=== PATIENT | male | born 1965 | race Caucasian/White ===

== ENCOUNTER 2020-07-23 08:04 | Day surgery (SDC) | payer BC ==
[2020-07-21 15:33] LABS: CORONAVIRUS COVID-19 NAA NEGATIVE (NEGATIVE)
[~2020-07-23 08:04] MED LIST: Sodium Chloride 0.9% 10 ML Syringe FLUSH PRN
[2020-07-23] MEDS ORDERED: fentaNYL 100 MCG/2 ML SDV ONE ×3 (08:19→09:07)
[2020-07-23] MEDS ORDERED: Propofol 200 MG/20 ML SDV ONE ×2 (08:20→09:07)
[2020-07-23] MEDS ORDERED: Midazolam 1 MG/ML 2 ML SDV ONE ×2 (08:20→09:07)
[2020-07-23] MEDS: Lactated Ringers 1,000 ML IV SCH (08:32)
--- NOTE | 2020-07-23 09:05 | PCM.PN ---
- General Info Date of Service: 07/23/20 - Review of Systems Systems Review Comment:: 54-year-old male with umbilical hernia here for repair. He is medically stable to proceed today. There has been no significant change in his health status since his recent history and physical. I have discussed the proposed umbilical hernia repair with the patient. We reviewed expectations and risks. We also discussed likely use of mesh. He agrees to proceed. The site is confirmed with the patient and marked. - Patient Data Vitals - Most Recent: Last Vital Signs Temp 97.0 F 07/23/20 08:40 Pulse 70 07/23/20 08:40 Resp 18 07/23/20 08:40 BP 152/92 H 07/23/20 08:40 Pulse Ox 98 07/23/20 08:40 Weight - Most Recent: 145.15 kg Med Orders - Current: Current Medications Lactated Ringer's (Ringers, Lactated) 1,000 mls @ 125 mls/hr IV ASDIRECTED LONNIE Last Admin: 07/23/20 08:32 Dose: 125 mls/hr Documented by: Sodium Chloride (Saline Flush) 10 ml FLUSH ASDIRECTED PRN PRN Reason: Keep Vein Open Discontinued Medications Fentanyl (Sublimaze) Confirm Administered Dose 100 mcg .ROUTE .STK-MED ONE Stop: 07/23/20 08:20 Fentanyl (Sublimaze) Confirm Administered Dose 100 mcg .ROUTE .STK-MED ONE Stop: 07/23/20 08:58 Midazolam HCl (Versed 1 Mg/Ml) Confirm Administered Dose 2 mg .ROUTE .STK-MED ONE Stop: 07/23/20 08:21 Propofol (Diprivan 20 Ml) Confirm Administered Dose 600 mg .ROUTE .STK-MED ONE Stop: 07/23/20 08:21 Sepsis Event Note - Focused Exam Vital Signs: Vital Signs Temp Pulse Resp BP Pulse Ox 07/23/20 08:40 97.0 F 70 18 152/92 H 98 - Problem List Review Problem List Initiated/Reviewed/Updated: Yes - My Orders Last 24 Hours: My Active Orders 07/23/20 08:00 Patient Status [ADT] Routine Peripheral IV Care [RC] . DIRECTED Verify Patient Consent Obtain [RC] ASDIRECTED Lactated Ringers [Ringers, Lactated] 1,000 ml IV ASDIRECTED Sodium Chloride 0.9% [Saline Flush] 10 ml FLUSH ASDIRECTED PRN Peripheral IV Insertion Adult [OM.PC] Routine - Assessment Assessment:: Umbilical hernia - Plan Plan:: Umbilical hernia repair
[2020-07-23] MEDS ORDERED: ceFAZolin 1 GM Vial ONE (09:07)
[2020-07-23] MEDS ORDERED: Neostigmine Methylsulfate 10 MG/10 ML MDV ONE (09:07)
[2020-07-23] MEDS ORDERED: Rocuronium 100 MG/10 ML MDV ONE (09:07)
[2020-07-23] MEDS ORDERED: Ondansetron 4 MG/2 ML SDV ONE (09:07)
[2020-07-23] MEDS ORDERED: Succinylcholine 200 MG/10 ML MDV ONE (09:07)
[2020-07-23] MEDS ORDERED: Ketorolac 30 MG/ML SDV ONE (09:07)
[2020-07-23] MEDS ORDERED: Dexamethasone 10 MG/ML SDV ONE (09:07)
[2020-07-23] MEDS ORDERED: Glycopyrrolate 0.2 MG/ML SDV ONE (09:07)
[2020-07-23] MEDS: Bupivacaine 0.25% 10 ML SDV INJECT ONE (09:34)
[2020-07-23] MEDS: ceFAZolin 1 GM Vial ONE (09:55)
[2020-07-23] MEDS: Bacitracin Oint 1 GM U/D Packet TOP ONE (11:25)
--- NOTE | 2020-07-23 11:47 | PCM.OPNOTE ---
- General Post-Op/Procedure Note Date of Surgery/Procedure: 07/23/20 Operative Procedure(s): Repair incarcerated umbilical hernia with mesh Findings: Large umbilical hernia with omentum contained within the sac and adhesed to it. No vascular compromise. Pre Op Diagnosis: umbilical hernia Post-Op Diagnosis: incarcerated umbilical hernia Anesthesia Technique: General ET Tube Primary Surgeon: Amari Leal Pathology: Umbilical hernia sac EBL in mLs: 30 Complications: None Condition: Good
--- NOTE | 2020-07-23 13:05 | OR ---
Date of Procedure: 07/23/2020 PREOPERATIVE DIAGNOSIS: Umbilical hernia. POSTOPERATIVE DIAGNOSIS: Incarcerated umbilical hernia. OPERATION PERFORMED: Repair of umbilical hernia with mesh. INDICATIONS FOR SURGERY: This 54-year-old male has developed a large hernia at the level of his umbilicus. This is becoming more symptomatic for him and he comes for an elective repair. FINDINGS: The patient has a [id number]-sized hernia at the level of the umbilicus. The fascial defect is approximately 6 cm in length. The surrounding fascia appears solid and of good quality. There is a large amount of omentum in the hernia sac with adhesions of the omentum to the sac causing it to be incarcerated, although there was no vascular compromise. There was no bowel involvement with the hernia sac. DESCRIPTION OF PROCEDURE: The patient was taken to the operating room. He was given general endotracheal anesthesia and the abdomen was sterilely prepped and draped. An infraumbilical curvilinear incision was made. Dissection proceeded down onto the hernia sac which was carefully isolated from the surrounding subcutaneous tissue. The overlying skin of the umbilicus was sharply dissected off the sac carefully preserving the skin uninjured. Once the sac had been completely freed circumferentially down to the level of the fascia, the fatty tissue surrounding the fascial opening was cleared to assure that there was no other defects in the area. The hernia sac was opened and omentum was identified within the sac. The adhesions of the omentum to the hernia sac were carefully taken down with cautery dissection until it was completely freed and then the omentum was able to be reduced intra-abdominally. The hernia sac was then excised with cautery at the level of the fascia. The hernia sac was quite thick, especially inferiorly, and this thick area was left intact with the sac attachments to it were divided above clamps and ligated with 0 Vicryl ties. This thick preperitoneal fatty tissue was then reduced as well and the fascial edges were trimmed to provide a good approximating surface. Surrounding subcutaneous fatty tissue was cleared off the anterior surface of the fascia, and then, a flat piece of polypropylene mesh was soaked in Ancef. The fascial defect was then closed with interrupted #1 Prolene sutures in a Smead-Bernard suturing technique. Incorporated in these repair sutures was a flat piece of polypropylene mesh on the anterior surface of the fascia. In this manner, the entire fascial defect was closed with reinforcing mesh in its anterior surface. This created a secure reinforced closure of the peritoneal fascial defect. The peripheral edges of the mesh were trimmed and these were tacked down to the underlying fascia with a running 0 Vicryl suture. No sign of any complications noted on this what appeared to be very solid repair. The wound was irrigated with Ancef in saline solution. The skin of the umbilicus was tacked down to the underlying fascia with 3-0 Vicryl and the subcutaneous tissue was reapproximated also with interrupted 3-0 Vicryl. It was also tacked down to the underlying fascia to try to limit any space. The skin was closed with a running 4-0 Vicryl subcuticular stitch. Benzoin and Steri-Strips were applied followed by antibiotic ointment and sterile dressings. The patient was then awakened, extubated, and taken from the operating room in satisfactory condition. ESTIMATED BLOOD LOSS: 30 mL. COMPLICATIONS: None. PROGNOSIS: Good. ERIKA Leal MD /[id number] MTDDrew
[2020-07-23 13:10] VITALS: BP 162/89
[2020-07-23 13:11] VITALS: PULSE 81
== END 2020-07-23 14:15 | disposition home or self-care (01) ==
LOC: LL.SDS 08:04
PROVIDERS: ATTEND Surgery
DX: K42.0 Umbilical hernia with obstruction, without gangrene (principal); I10 Essential (primary) hypertension; E78.5 Hyperlipidemia, unspecified; E66.9 Obesity, unspecified; Z68.42 Body mass index [BMI] 45.0-49.9, adult; Z01.812 Encounter for preprocedural laboratory examination; Z20.822 Contact with and (suspected) exposure to COVID-19
CPT/HCPCS: 00750; C1781; J0330; J0690; J1100; J1885; J2250; J2405; J2704; J2710; J3010; J3490; J7120; U0002

== ENCOUNTER 2020-08-28 14:25 | Emergency (ER) | payer BC, OTHER ==
--- NOTE | 2020-08-28 14:44 | EDM.PDOC ---
ED HPI GENERAL MEDICAL PROBLEM - General Chief Complaint: Laceration Stated Complaint: Laceration Time Seen by Provider: 08/28/20 14:35 Source of Information: Reports: Patient, Old Records ([facility] chart/EMR) History Limitations: Reports: No Limitations - History of Present Illness INITIAL COMMENTS - FREE TEXT/NARRATIVE: The patient drove himself to the emergency room via private automobile for evaluation of a Workmen's Compensation injury, which occurred at about 2 PM this afternoon. 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 He is right-handed and has not injured this hand in the past. The patient did rinse out the wound with some tap water with no other treatment or medications prior to arrival. The patient denies any chest pain/pressure, heart flutter, dizziness, orthostasis, orthopnea, diaphoresis, paresthesias, recent decreased exercise tolerance, or any other anginal-type symptoms. No recent history of abdominal pain, heartburn, nausea, diarrhea, melena, gross hematochezia, or any food intolerance, including fatty foods, etc.. The patient also denies any recent fever, cough, wheezing, dyspnea, etc.. He denies any significant pain or discomfort. Onset: Today, Sudden Onset Date: 08/28/20 Onset Time: 14:00 Duration: Constant Location: Reports: Upper Extremity, Right, Other (No significant pain). Denies: Head, Face, Neck, Chest, Abdomen, Back, Pelvis, Upper Extremity, Left, Lower Extremity, Left, Radiates to Quality: Reports: Same as Previous Episode (Was) Improves with: Reports: None Worsens with: Reports: None Context: Reports: Trauma (As above) Associated Symptoms: Denies: Confusion, Chest Pain, Cough, Diaphoresis, Fever/Chills, Headaches, Malaise, Nausea/Vomiting, Rash, Shortness of Breath, Syncope, Weakness Treatments [employer]ER: Reports: Other (see below) (As above) - Related Data Allergies Allergy/AdvReac Type Severity Reaction Status Date / Time No Known Allergies Allergy Verified 07/23/20 05:34 Home Meds: Home Meds Acetaminophen [Tylenol Extra Strength] 500 mg PO Q6H PRN MDD 4000 07/23/20 [Hist ory] Ranitidine [Zantac] 75 mg PO DAILY PRN 07/23/20 [History] Past Medical History HEENT History: Reports: None Cardiovascular History: Reports: Hypertension Respiratory History: Reports: None Gastrointestinal History: Reports: GERD Endocrine/Metabolic History: Reports: Obesity/BMI 30+ - Past Surgical History GI Surgical History: Reports: Hernia, Abdominal, Other (See Below) Other GI Surgeries/Procedures: Repair of incarcerated umbilical hernia on 07/23/2019. Musculoskeletal Surgical History: Reports: Hip Replacement ED ROS GENERAL - Review of Systems Review Of Systems: Comprehensive ROS is negative, except as noted in HPI. ED EXAM, SKIN/RASH Exam: See Below Exam Limited By: No Limitations General Appearance: Alert, WD/WN, No Apparent Distress Head: Atraumatic, Normocephalic. No: Facial Swelling, Facial Tenderness, Sinus Tenderness Neck: Normal Inspection, Supple, Non-Tender, Full Range of Motion. No: Lymphadenopathy (L), Lymphadenopathy (R) Respiratory/Chest: No Respiratory Distress, Lungs Clear, Normal Breath Sounds, No Accessory Muscle Use, Chest Non-Tender. No: Pleural Rub, Retractions Cardiovascular: Normal Peripheral Pulses, Regular Rate, Rhythm, No Edema, No Gallop, No JVD, No Murmur, No Rub. No: Gallop/S3, Gallop/S4, Friction Rub Peripheral Pulses: 2+: Radial (L), Radial (R) GI/Abdominal: Normal Bowel Sounds, Soft, Non-Tender, No Organomegaly, No Distention, No Abnormal Bruit, No Mass, Other (Obese). No: Guarding (Male) Exam: Deferred Rectal (Males) Exam: Deferred Back Exam: Normal Inspection, Full Range of Motion. No: CVA Tenderness (L), CVA Tenderness (R), Muscle Spasm Extremities: Normal Range of Motion, No Pedal Edema, Normal Capillary Refill, Other (4 cm in length laceration over the dorsal surface of the right hand with no evidence of foreign body, nerve/tendon involvement, or significant bleeding). No: Non-Tender (Minimal tenderness at laceration site), Gerhard's Sign, Increased Warmth Neurological: Alert, Oriented, CN II-XII Intact, Normal Cognition, Normal Gait, No Motor/Sensory Deficits Psychiatric: Normal Affect, Normal Mood Skin: Wound/Incision (As above). No: Diaphoretic Location, Skin: Upper Extremity, Right Characteristics: Other (As above) Associated features: Tenderness (As above). No: Warmth, Lymphangitis, Inflammation Lymphatic: No Adenopathy ED SKIN PROCEDURES - Laceration/Wound Repair Right Dorsal Hand Appearance: Subcutaneous, Mildly Contaminated Distal NVT: Neuro & Vascular Intact, No Tendon Injury Anesthetic Type: Local Local Anesthesia - Lidocaine (Xylocaine): 1% Plain Local Anesthetic Volume: Other (6 cc) Skin Prep: Providone-Iodine (Betadine) (Initial povidone iodine soak with subsequent thorough wash with similar solution by this provider) Saline Irrigation (cc's): 0 Exploration/Debridement/Repair: Wound Explored, In a Bloodless Field, Explored to Base, No Foreign Material Found, Multiple Flaps Aligned Closed with: Sutures Lac/Wound length In cm: 4.0 Suture Size: 4-0 # of Sutures: 7 Suture Type: Nylon, Interrupted, Simple Drain Placement: No Sterile Dressing Applied: Nurse Tetanus Status Addressed: Yes Complications: No Course - Vital Signs Last Recorded V/S: Last Vital Signs Temp 35.7 C L 08/28/20 14:30 Pulse 93 08/28/20 14:30 Resp 16 08/28/20 14:30 BP 144/80 H 08/28/20 14:30 Pulse Ox 96 08/28/20 14:30 - Orders/Labs/Meds Labs: None Meds: Medications Discontinued Medications Generic Name Dose Route Start Last Admin Trade Name Freq PRN Reason Stop Dose Admin Diphtheria/Tetanus/Acell Pertussis 0.5 ml 08/28/20 14:45 08/28/20 15:13 Diphtheria,Pertussis(Acell),Tetanus Vaccine 0.5 Ml Syringe IM 08/28/20 14:46 0.5 ml .ONCE ONE Administration Lidocaine HCl 5 ml 08/28/20 14:44 08/28/20 14:53 Lidocaine 1% 5 Ml Sdv INJECT 08/28/20 14:45 5 ml ONETIME ONE Administration Lidocaine HCl 5 ml 08/28/20 14:45 08/28/20 14:53 Lidocaine 1% 5 Ml Sdv INJECT 08/28/20 14:46 5 ml ONETIME ONE Administration Neomycin/Polymyxin/Bacitracin 1 each 08/28/20 14:45 08/28/20 14:57 Bacitracin/Neomycin/Polymyxin B Oint 0.9 Gm U/D Packet TOP 08/28/20 14:46 1 each ONETIME ONE Administration - Radiology Interpretation Free Text/Narrative:: None Departure - Departure Time of Disposition: 15:35 Disposition: Home, Self-Care 01 Condition: Good Clinical Impression: Laceration, Obesity (BMI 30-39.9), Elevated blood pressure reading Osteoarthritis Qualifiers: Osteoarthritis location: multiple joints Osteoarthritis type: primary Qualified Code(s): M89.49 - Other hypertrophic osteoarthropathy, multiple sites GERD (gastroesophageal reflux disease) Qualifiers: Esophagitis presence: without esophagitis Qualified Code(s): K21.9 - Gastro- esophageal reflux disease without esophagitis - Discharge Information *PRESCRIPTION DRUG MONITORING PROGRAM REVIEWED*: Not Applicable *COPY OF PRESCRIPTION DRUG MONITORING REPORT IN PATIENT NIDIA: Not Applicable Instructions: Laceration Care, Adult, [id number], Sutures, Rohit, or Adhesive Wound Closure, [id number] Referrals: Luis Miguel Jackson PA [Primary Care Provider] - Forms: ED Department Discharge, ED Return to Work/School Form Additional Instructions: 1. Follow up with your regular provider in 10-14 days for suture removal as directed. Bring these discharge instructions with you to that visit. 2. Antibacterial soap wash/soak with subsequent antibacterial dressing such as Neosporin, etc. as directed 2 times per day until the wound or laceration site completely heals. Keep the area clean and dry with activity restrictions as discussed. Never use hydrogen peroxide for wound care. 3. Work excuse- See Form 4. Immediately after this visit verify that your cellular telephone's voicemail has been activated and is empty. Also verify that your home telephone's answering machine is operating properly and has space to receive messages. Note that it is sometimes necessary for us to be able to contact you at a later date to discuss your medical care. 5. Please remember that we are ALWAYS here for you and want to answer any questions you may have. Feel free to call the hospital any time and we call you back MALICK. 6. Continue to observe your blood pressure and pulses closely through your [facility] provider, including at time of the above follow-up visit. - Problem List & Annotations (1) Laceration SNOMED Code(s): 120500225 Code(s): KCY6345 - Status: Acute Priority: High Onset Date: 08/28/20 Annotation/Comment:: Excellent results with laceration repair as above. Workmen's Compensation and work excuse forms were completed. DTaP was given. Activity restrictions, wound care, etc. were extensively discussed. (2) Elevated blood pressure reading SNOMED Code(s): 35280284 Code(s): R03.0 - ELEVATED BLOOD-PRESSURE READING, W/O DIAGNOSIS OF HTN Status: Acute Priority: Medium Annotation/Comment:: Mildly elevated blood pressure in the emergency room. Previous history of borderline hypertension with no previous medical therapy. Continue to observe closely by his regular provider. (3) Obesity (BMI 30-39.9) SNOMED Code(s): 031707035, 239886681 Code(s): E66.9 - OBESITY, UNSPECIFIED Status: Chronic Priority: Medium Annotation/Comment:: Weight loss in moderation advisable. Note borderline hypertension by history as above. (4) Osteoarthritis SNOMED Code(s): 560340086 Code(s): M19.90 - UNSPECIFIED OSTEOARTHRITIS, UNSPECIFIED SITE Status: Chronic Priority: Medium Annotation/Comment:: Otherwise stable by history with no evidence of other injury. Qualifiers: Osteoarthritis location: multiple joints Osteoarthritis type: primary Qualified Code(s): M89.49 - Other hypertrophic osteoarthropathy, multiple sites (5) GERD (gastroesophageal reflux disease) SNOMED Code(s): 645624133 Code(s): K21.9 - GASTRO-ESOPHAGEAL REFLUX DISEASE WITHOUT ESOPHAGITIS Status: Chronic Priority: Medium Annotation/Comment:: Stable by history with current medical therapy. Qualifiers: Esophagitis presence: without esophagitis Qualified Code(s): K21.9 - Gastro-esophageal reflux disease without esophagitis - Problem List Review Problem List Initiated/Reviewed/Updated: Yes - Assessment/Plan Assessment:: As above Plan: As above. Extensive precautions were given to the patient, who is in agreement with the treatment plan. See Patient Instructions for further treatment and plan.
[2020-08-28] MEDS ORDERED: Diphtheria,Pertussis(Acell),Tetanus Vaccine 0.5 ML Syringe IM ONE (14:45)
[2020-08-28] MEDS ORDERED: Bacitracin/Neomycin/Polymyxin B Oint 0.9 GM U/D Packet TOP ONE (14:45)
== END 2020-08-28 15:35 | disposition home or self-care (01) ==
LOC: LL.ED 14:25
DX: S61.411A Laceration without foreign body of right hand, initial encounter (principal); R03.0 Elevated blood-pressure reading, without diagnosis of hypertension; M89.49 Other hypertrophic osteoarthropathy, multiple sites; K21.9 Gastro-esophageal reflux disease without esophagitis; E66.9 Obesity, unspecified; I10 Essential (primary) hypertension; Z79.899 Other long term (current) drug therapy; Z23 Encounter for immunization; W26.8XXA Contact with other sharp object(s), not elsewhere classified, initial encounter
CPT/HCPCS: 12002; 90471; 90715; 99282-25; 99283

== ENCOUNTER 2020-11-01 08:43 | Observation (INO) | payer BC ==
[2020-11-01] MEDS ORDERED: Sodium Chloride 0.9% 1,000 ML IV ONE (08:49)
[2020-11-01] MEDS ORDERED: Ketorolac 30 MG/ML SDV IVPUSH ONE (08:52)
[2020-11-01] MEDS: Sodium Chloride 0.9% 10 ML Syringe FLUSH PRN ×2 (09:10→11:38)
[2020-11-01 09:30] LABS: CHLORIDE,CL 102 mmol/L (98-107); SODIUM,NA 137 mmol/L (136-145)
[2020-11-01] MEDS ORDERED: Tamsulosin 0.4 MG Cap.ER PO ONE (09:42)
--- NOTE | 2020-11-01 09:54 | EDM.PDOC ---
ED HPI GENERAL MEDICAL PROBLEM - General Chief Complaint: Flank Pain Stated Complaint: Flank Pain Time Seen by Provider: 11/01/20 09:00 Source of Information: Reports: Patient History Limitations: Reports: No Limitations - History of Present Illness INITIAL COMMENTS - FREE TEXT/NARRATIVE: Diagnosed with 4.5mm kidney stone near right distal ureter 10/28. Comes to ER with increased pain complaint. Received Flomax from primary provider at time of diagnosis. Using Ibuprofen for pain. 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 - Related Data Allergies Allergy/AdvReac Type Severity Reaction Status Date / Time No Known Allergies Allergy Verified 07/23/20 05:34 Home Meds: Home Meds Acetaminophen [Tylenol Extra Strength] 500 mg PO Q6H PRN MDD 4000 07/23/20 [History] Ranitidine [Zantac] 75 mg PO DAILY PRN 07/23/20 [History] Tamsulosin HCl [Flomax] 0.4 mg PO BEDTIME 11/01/20 [History] Past Medical History HEENT History: Reports: None Cardiovascular History: Reports: Hypertension Respiratory History: Reports: None Gastrointestinal History: Reports: GERD, Other (See Below) (fatty enlarged liver) Genitourinary History: Reports: Renal Calculus Endocrine/Metabolic History: Reports: Obesity/BMI 30+ - Past Surgical History GI Surgical History: Reports: Hernia, Abdominal, Other (See Below) Other GI Surgeries/Procedures: Repair of incarcerated umbilical hernia on 07/23/2019. ED ROS GENERAL - Review of Systems Review Of Systems: See Below Constitutional: Reports: No Symptoms HEENT: Reports: No Symptoms Respiratory: Reports: No Symptoms Cardiovascular: Reports: No Symptoms GI/Abdominal: Denies: Constipation, Diarrhea, Nausea, Vomiting : Reports: Flank Pain. Denies: Hematuria, Urinary Retention Musculoskeletal: Reports: No Symptoms Skin: Reports: No Symptoms Neurological: Reports: No Symptoms Psychiatric: Reports: No Symptoms ED EXAM, GENERAL - Physical Exam Exam: See Below Exam Limited By: No Limitations General Appearance: Alert, Moderate Distress, Obese Eye Exam: Bilateral Eye: EOMI, PERRL Ears: Hearing Grossly Normal Nose: No: Nasal Deformity, Nasal Swelling, Nasal Drainage Throat/Mouth: Normal Lips, Normal Voice, No Airway Compromise Head: Atraumatic, Normocephalic Neck: Supple Respiratory/Chest: No Respiratory Distress, Lungs Clear, Normal Breath Sounds, No Accessory Muscle Use, Chest Non-Tender Cardiovascular: Normal Peripheral Pulses, Regular Rate, Rhythm, No Murmur GI/Abdominal: Soft, Non-Tender (Male) Exam: Deferred Rectal (Males) Exam: Deferred Back Exam: No: CVA Tenderness (L), CVA Tenderness (R), Muscle Spasm Extremities: Normal Capillary Refill Neurological: Alert, Oriented, Normal Gait, No Motor/Sensory Deficits Psychiatric: Normal Affect, Normal Mood Skin Exam: Warm, Dry, Intact, Normal Color Course - Vital Signs Last Recorded V/S: Last Vital Signs Temp 36.5 C 11/01/20 08:45 Pulse 72 11/01/20 08:45 Resp 16 11/01/20 08:45 BP 158/99 H 11/01/20 08:45 Pulse Ox 98 11/01/20 08:45 - Orders/Labs/Meds Orders: Active Orders 24 hr Category Date Time Status Peripheral IV Care [RC] . DIRECTED Care 11/01/20 08:49 Active UA RFX HONORIO AND CULT IF INDIC [URIN] Stat Lab 11/01/20 08:48 Ordered Sodium Chloride 0.9% [Normal Saline] 1,000 ml Med 11/01/20 08:49 Active IV .BOLUS Sodium Chloride 0.9% [Saline Flush] Med 11/01/20 08:49 Active 10 ml FLUSH ASDIRECTED PRN Tamsulosin [Flomax] Med 11/01/20 09:42 Once 0.4 mg PO ONETIME ONE Peripheral IV Insertion Adult [OM.PC] Routine Oth 11/01/20 08:49 Ordered Medication Orders Sodium Chloride (Normal Saline) 1,000 mls @ 999 mls/hr IV .BOLUS ONE Stop: 11/01/20 09:49 Last Admin: 11/01/20 09:07 Dose: 999 mls/hr Documented by: DANAY Sodium Chloride (Sodium Chloride 0.9% 10 Ml Syringe) 10 ml FLUSH ASDIRECTED PRN PRN Reason: Keep Vein Open Last Admin: 11/01/20 09:10 Dose: 10 ml Documented by: DANAY Tamsulosin HCl (Tamsulosin 0.4 Mg Cap.Er) 0.4 mg PO ONETIME ONE Stop: 11/01/20 09:43 Labs: Laboratory Tests 11/01/20 11/01/20 Range/Units 09:02 09:02 WBC 9.0 (4.0-10.2) K/uL RBC 5.99 H (4.33-5.41) M/uL Hgb 15.1 (13.1-16.8) g/dL Hct 45.3 (39.0-49.0) % MCV 75.6 L (84.0-98.0) fL MCH 25.2 L (28.2-33.3) pg MCHC 33.3 (31.7-36.0) g/dL RDW 13.7 (11.2-14.1) % Plt Count 229 (150-350) K/uL Neut % (Auto) 75.4 (45.0-80.0) % Lymph % (Auto) 16.9 (10.0-50.0) % [place] % (Auto) 6.9 (2.0-14.0) % Eos % (Auto) 0.4 (0.0-5.0) % Baso % (Auto) 0.4 (0.0-2.0) % Neut # (Auto) 6.76 (1.40-7.00) K/uL Lymph # (Auto) 1.52 (0.50-3.50) K/uL [place] # (Auto) 0.62 (0.00-1.00) K/uL Eos # (Auto) 0.04 (0.00-0.50) K/uL Baso # (Auto) 0.04 (0.00-0.20) K/uL Sodium 137 (136-145) mmol/L Potassium 4.5 (3.5-5.1) mmol/L Chloride 102 (98-107) mmol/L Carbon Dioxide 23.0 (21.0-32.0) mmol/L BUN 20 H (7-18) mg/dL Creatinine 0.78 (0.51-1.17) mg/dL Est Cr Clr Drug Dosing TNP Estimated GFR (MDRD) > 60 mL/min Glucose 164 H (70-99) mg/dL Calcium 9.1 (8.5-10.1) mg/dL Magnesium 2.0 (1.8-2.4) mg/dL Total Bilirubin 0.2 (0.2-1.0) mg/dL AST 19 (15-37) U/L ALT 32 (12-78) U/L Alkaline Phosphatase 109 (46-116) IU/L Total Protein 7.5 (6.4-8.2) g/dL Albumin 3.7 (3.4-5.0) g/dL Meds: Medications Generic Name Dose Route Start Last Admin Trade Name Freq PRN Reason Stop Dose Admin Sodium Chloride 1,000 mls @ 999 mls/hr 11/01/20 08:49 11/01/20 09:07 Normal Saline IV 11/01/20 09:49 999 mls/hr .BOLUS ONE Administration Sodium Chloride 10 ml 11/01/20 08:49 11/01/20 09:10 Sodium Chloride 0.9% 10 Ml Syringe FLUSH 10 ml ASDIRECTED PRN Administration Keep Vein Open Tamsulosin HCl 0.4 mg 11/01/20 09:42 Tamsulosin 0.4 Mg Cap.Er PO 11/01/20 09:43 ONETIME ONE Discontinued Medications Generic Name Dose Route Start Last Admin Trade Name Freq PRN Reason Stop Dose Admin Ketorolac Tromethamine 30 mg 11/01/20 08:52 11/01/20 09:07 Ketorolac 30 Mg/Ml Sdv IVPUSH 11/01/20 08:53 30 mg ONETIME ONE Administration - Re-Assessments/Exams Free Text/Narrative Re-Assessment/Exam: 11/01/20 11:12 Patient much more comfortable after Toradol. Received Flomax tab. NS bolus. Departure - Departure Time of Disposition: 10:30 Disposition: Refer to Observation Condition: Good Clinical Impression: Ureteric colic - Discharge Information *PRESCRIPTION DRUG MONITORING PROGRAM REVIEWED*: Not Applicable *COPY OF PRESCRIPTION DRUG MONITORING REPORT IN PATIENT NIDIA: Not Applicable Referrals: Luis Miguel Jackson PA [Primary Care Provider] - Sepsis Event Note (ED) - Evaluation Sepsis Screening Result: No Definite Risk - Focused Exam Vital Signs: Vital Signs Temp Pulse Resp BP Pulse Ox 11/01/20 08:45 36.5 C 72 16 158/99 H 98 - Problem List & Annotations (1) Ureteric colic SNOMED Code(s): 35178529 Code(s): N23 - UNSPECIFIED RENAL COLIC Status: Acute Priority: High Current Visit: Yes Onset Date: ~10/28/20 Annotation/Comment:: 4.5mm stone near distal right ureter per recent CT study. Admit observation for supportive care/pain control/IV fluids. If patient does not pass stone by tomorrow, will touch base with Urology. (2) Hypertension SNOMED Code(s): 74307623 Code(s): I10 - ESSENTIAL (PRIMARY) HYPERTENSION Status: Chronic Priority: Medium Current Visit: Yes Annotation/Comment:: Observe trends. Patient is not currently under therapy for his elevated BP readings. Qualifiers: Hypertension type: essential hypertension Qualified Code(s): I10 - Essential (primary) hypertension (3) Fatty liver SNOMED Code(s): 715021709 Code(s): K76.0 - FATTY (CHANGE OF) LIVER, NOT ELSEWHERE CLASSIFIED Status: Acute Priority: Low Current Visit: No Annotation/Comment:: Encouraged dietary changes/lifestyle changes to assist with fatty liver changes in addition to patient's obesity/hypertension. (4) Osteoarthritis SNOMED Code(s): 147467242 Code(s): M19.90 - UNSPECIFIED OSTEOARTHRITIS, UNSPECIFIED SITE Status: Chronic Priority: Low Current Visit: No Annotation/Comment:: Otherwise stable by history with no evidence of other injury. Qualifiers: Osteoarthritis location: multiple joints Osteoarthritis type: primary Qualified Code(s): M89.49 - Other hypertrophic osteoarthropathy, multiple sites (5) Obesity (BMI 30-39.9) SNOMED Code(s): 373060926, 440477819 Code(s): E66.9 - OBESITY, UNSPECIFIED Status: Chronic Priority: Low Current Visit: Yes Annotation/Comment:: as above. (6) GERD (gastroesophageal reflux disease) SNOMED Code(s): 677809932 Code(s): K21.9 - GASTRO-ESOPHAGEAL REFLUX DISEASE WITHOUT ESOPHAGITIS Status: Chronic Priority: Medium Current Visit: Yes Annotation/Comment:: Stable by history with current medical therapy. Qualifiers: Esophagitis presence: without esophagitis Qualified Code(s): K21.9 - Gastro-esophageal reflux disease without esophagitis - Problem List Review Problem List Initiated/Reviewed/Updated: Yes - My Orders Last 24 Hours: My Active Orders 11/01/20 08:48 UA RFX HONORIO AND CULT IF INDIC [URIN] Stat 11/01/20 08:49 Peripheral IV Care [RC] . DIRECTED Sodium Chloride 0.9% [Normal Saline] 1,000 ml IV .BOLUS Sodium Chloride 0.9% [Saline Flush] 10 ml FLUSH ASDIRECTED PRN Peripheral IV Insertion Adult [OM.PC] Routine 11/01/20 09:42 Tamsulosin [Flomax] 0.4 mg PO ONETIME ONE - Assessment/Plan Admission H&P: Please use this note as an admission H&P Last 24 Hours: My Active Orders 11/01/20 08:48 UA RFX HONORIO AND CULT IF INDIC [URIN] Stat 11/01/20 08:49 Peripheral IV Care [RC] . DIRECTED Sodium Chloride 0.9% [Normal Saline] 1,000 ml IV .BOLUS Sodium Chloride 0.9% [Saline Flush] 10 ml FLUSH ASDIRECTED PRN Peripheral IV Insertion Adult [OM.PC] Routine 11/01/20 09:42 Tamsulosin [Flomax] 0.4 mg PO ONETIME ONE Assessment:: Right sided flank pain/kidney stone Plan: Stable and suitable for general supervision, admit observation.
[2020-11-01] MEDS ORDERED: Ondansetron 4 MG/2 ML SDV IVPUSH PRN (11:22)
[2020-11-01] MEDS ORDERED: Ketorolac 15 MG/ML SDV IVPUSH PRN (11:22)
[2020-11-01] MEDS ORDERED: HYDROmorphone 0.5 MG/0.5 ML Syringe IVPUSH PRN (11:23)
[2020-11-01 11:25] LABS: HEMOGLOBIN A1C 7.5 % (4.3-5.7)
[2020-11-01] MEDS: Sodium Chloride 0.9% 1,000 ML IV SCH ×2 (11:38→19:55)
[2020-11-01] MEDS ORDERED: Losartan 50 MG Tab PO SCH ×2 (15:00→20:00)
[2020-11-01] MEDS: Tamsulosin 0.4 MG Cap.ER PO SCH (18:29)
[2020-11-02] MEDS ORDERED: Magnesium Citrate Solution 296 ML Bottle PO ONE (01:44)
[2020-11-02] MEDS ORDERED: Lactulose Soln 10 GM/15 ML 30 ML UD Cup PO ONE (01:44)
[2020-11-02] MEDS: Sodium Chloride 0.9% 1,000 ML IV SCH (03:56)
[2020-11-02] MEDS: Tamsulosin 0.4 MG Cap.ER PO SCH (07:43)
[2020-11-02 08:09] LABS: CHLORIDE,CL 102 mmol/L (98-107); SODIUM,NA 135 mmol/L (136-145)
--- NOTE | 2020-11-02 13:14 | PCM.DCSUM1 ---
Discharge Summary - Hospital Course Brief History: Patient admitted for treatment of pain associated with renal colic. Diagnosis: Stroke: No - Discharge Data Discharge Date: 11/02/20 Discharge Disposition: Home, Self-Care 01 Condition: Good - Referral to Home Health Primary Care Physician: RENATO Kidd - Discharge Diagnosis/Problem(s) (1) Ureteric colic SNOMED Code(s): 46260162 ICD Code: N23 - UNSPECIFIED RENAL COLIC Status: Acute Priority: High Current Visit: Yes Onset Date: ~10/28/20 Problem Details: 4.5mm stone near distal right ureter per recent CT study. Admitted observation. Pain-free now for approx 12 hours. Last dose Toradol was at that time. Has not needed additional pain medication. Patient may have passed stone into bladder. Plan to have him continue Flomax for another three days and have PRN Zofran/Toradol. He has follow up appointment in 3 days with his primary. To continue to strain for a stone in meantime. If pain returns recommend new CT scan to re-evaluate position of stone. No obvious stone noted on plain films today but pending formal Radiology review. If it turns out stone is still in ureter he will need Urology consult. (2) Hypertension SNOMED Code(s): 85151029 ICD Code: I10 - ESSENTIAL (PRIMARY) HYPERTENSION Status: Chronic Priority: Medium Current Visit: Yes Problem Details: Cozaar initiated. To follow up with PCP later this week for recheck. Qualifiers: Hypertension type: essential hypertension Qualified Code(s): I10 - Essential (primary) hypertension (3) Elevated hemoglobin A1c SNOMED Code(s): 933581905 ICD Code: R73.09 - OTHER ABNORMAL GLUCOSE Status: Acute Priority: Medium Current Visit: Yes Problem Details: Advised patient that he is developing Type 2 Diabetes. Encouraged immediate dietary change including whole food lower carb diet. This would also be beneficial for patient's fatty liver, hypertension, and GERD. (4) Fatty liver SNOMED Code(s): 740991875 ICD Code: K76.0 - FATTY (CHANGE OF) LIVER, NOT ELSEWHERE CLASSIFIED Status: Acute Priority: Low Current Visit: No Problem Details: Encouraged dietary changes/lifestyle changes to assist with fatty liver changes in addition to patient's obesity/hypertension. (5) Osteoarthritis SNOMED Code(s): 234356281 ICD Code: M19.90 - UNSPECIFIED OSTEOARTHRITIS, UNSPECIFIED SITE Status: Chronic Priority: Low Current Visit: No Problem Details: Otherwise stable by history with no evidence of other injury. Qualifiers: Osteoarthritis location: multiple joints Osteoarthritis type: primary Qualified Code(s): M89.49 - Other hypertrophic osteoarthropathy, multiple sites (6) Obesity (BMI 30-39.9) SNOMED Code(s): 147531418, 471287124 ICD Code: E66.9 - OBESITY, UNSPECIFIED Status: Chronic Priority: Low Current Visit: Yes Problem Details: as above. (7) GERD (gastroesophageal reflux disease) SNOMED Code(s): 951040559 ICD Code: K21.9 - GASTRO-ESOPHAGEAL REFLUX DISEASE WITHOUT ESOPHAGITIS Status: Chronic Priority: Medium Current Visit: Yes Problem Details: Stable by history with current medical therapy. Qualifiers: Esophagitis presence: without esophagitis Qualified Code(s): K21.9 - Gastro-esophageal reflux disease without esophagitis - Patient Summary/Data Hospital Course: As above. Patient pain-free since around midnight. Has note required any additional pain medication. May have passed stone into bladder. Initiated BP medication and advised diet/lifestyle changes to address his blood pressure/fa tty liver/Type 2 DM. He has follow up appointment with primary provider in three days. To continue Flomax daily. PRN Zofran/Toradol. Reassess at PCP appointment. If pain returns recommend new CT to reassess stone. If patient has not passed it then Urology consult indicated for next plan of intervention. Patient to follow up in ER as needed PRN problems. - Patient Instructions Diet: Anti-Inflammatory, Limited Carb (limit to 100grams daily) Activity: As Tolerated Driving: May Drive Today Showering/Bathing: May Shower Notify Provider of: Increased Pain, Nausea and/or Vomiting Other/Special Instructions: Watch for any return of the same pain. Follow up with your clinic as scheduled for recheck. If you have continued episodes of pain between now and then, and have not passed a stone, it is recommended that you get a new scan to see if the stone is still stuck in place. If it is, you need to see Urology. Return to ER if you have sudden worsening problems. Recommend buying own home BP machine too to keep track of your blood pressures. Check it several times a week/keep a diary. Do not take any ibuprofen or naprosyn while you are taking the Toradol. They are in same family and can cause kidney and stomach problems if you take too much. Dietary changes as discussed! Lower carb anti-inflammatory diet should be very helpful addressing the diabetes/blood pressure/fatty liver/heart burn problems. Avoid all boxed/fast/premade food. Avoid sugars/grains/gluten. - Discharge Plan *PRESCRIPTION DRUG MONITORING PROGRAM REVIEWED*: Not Applicable *COPY OF PRESCRIPTION DRUG MONITORING REPORT IN PATIENT NIDIA: Not Applicable Prescriptions/Med Rec: Losartan [Cozaar] 50 mg PO BEDTIME #30 tablet Ketorolac [Toradol] 10 mg PO Q6H PRN #15 tab PRN Reason: Pain Ondansetron [Zofran ODT] 4 mg PO Q6H PRN #8 tab.dis PRN Reason: Nausea Home Medications: Home Meds Acetaminophen [Tylenol Extra Strength] 500 mg PO Q6H PRN MDD 4000 07/23/20 [History] Ranitidine [Zantac] 75 mg PO DAILY PRN 07/23/20 [History] Tamsulosin HCl [Flomax] 0.4 mg PO BEDTIME 11/01/20 [History] Ketorolac [Toradol] 10 mg PO Q6H PRN #15 tab 11/02/20 [Rx] Losartan [Cozaar] 50 mg PO BEDTIME #30 tablet 11/02/20 [Rx] Ondansetron [Zofran ODT] 4 mg PO Q6H PRN #8 tab.dis 11/02/20 [Rx] Forms: ED Department Discharge Referrals: Luis Miguel Jackson PA [Primary Care Provider] - - Discharge Summary/Plan Comment DC Time >30 min.: No - General Info Date of Service: 11/02/20 Admission Dx/Problem (Free Text: Renal Colic Subjective Update: Patient feels good and is pain-free Functional Status: Reports: Pain Controlled, Tolerating Diet, Ambulating, Urinating. Denies: New Symptoms - Review of Systems General: Reports: No Symptoms HEENT: Reports: No Symptoms Pulmonary: Reports: No Symptoms Cardiovascular: Reports: No Symptoms Gastrointestinal: Reports: No Symptoms Genitourinary: Reports: No Symptoms. Denies: Frequency, Burning, Urgency, Hematuria, Retention, Flank Pain Musculoskeletal: Reports: Other (no acute changes from baseline) Skin: Reports: No Symptoms Neurological: Reports: No Symptoms Psychiatric: Reports: No Symptoms - Patient Data Vitals - Most Recent: Last Vital Signs Temp 36.4 C 11/02/20 12:50 Pulse 88 11/02/20 12:50 Resp 18 11/02/20 12:50 BP 160/90 H 11/02/20 12:50 Pulse Ox 97 11/02/20 12:50 Weight - Most Recent: 154.221 kg I&O - Last 24 hours: Intake & Output 11/01/20 11/02/20 11/02/20 22:59 06:59 14:59 Intake Total 3032 1611 1500 Output Total 242 2025 850 Balance 607 -580 650 Lab Results - Last 24 hrs: Laboratory Results - last 24 hr 11/01/20 11/02/20 11/02/20 Range/Units 11:55 07:22 07:22 WBC 6.2 (4.0-10.2) K/uL RBC 5.60 H (4.33-5.41) M/uL Hgb 14.2 (13.1-16.8) g/dL Hct 42.2 (39.0-49.0) % MCV 75.4 L (84.0-98.0) fL MCH 25.4 L (28.2-33.3) pg MCHC 33.6 (31.7-36.0) g/dL RDW 13.5 (11.2-14.1) % Plt Count 208 (150-350) K/uL Neut % (Auto) 70.0 (45.0-80.0) % Lymph % (Auto) 20.8 (10.0-50.0) % [place] % (Auto) 7.9 (2.0-14.0) % Eos % (Auto) 1.0 (0.0-5.0) % Baso % (Auto) 0.3 (0.0-2.0) % Neut # (Auto) 4.33 (1.40-7.00) K/uL Lymph # (Auto) 1.29 (0.50-3.50) K/uL [place] # (Auto) 0.49 (0.00-1.00) K/uL Eos # (Auto) 0.06 (0.00-0.50) K/uL Baso # (Auto) 0.02 (0.00-0.20) K/uL Sodium 135 L (136-145) mmol/L Potassium 4.2 (3.5-5.1) mmol/L Chloride 102 (98-107) mmol/L Carbon Dioxide 22.3 (21.0-32.0) mmol/L BUN 17 (7-18) mg/dL Creatinine 0.78 (0.51-1.17) mg/dL Est Cr Clr Drug Dosing 112.63 mL/min Estimated GFR (MDRD) > 60 mL/min Glucose 158 H (70-99) mg/dL Calcium 9.0 (8.5-10.1) mg/dL Specimen Type Urinblad Urine Color Dark yellow Urine Appearance Slightly cloudy Urine pH 5.0 (5.0-9.0) Ur Specific [place] 1.020 (1.005-1.030) Urine Protein Negative (NEGATIVE) mg/dL Urine Glucose (UA) Negative (NEGATIVE) mg/dL Urine Ketones Negative (NEGATIVE) mg/dL Urine Occult Blood Large H (NEGATIVE) Urine Nitrite Negative (NEGATIVE) Urine Bilirubin Negative (NEGATIVE) Urine Urobilinogen 0.2 (0.2-1.0) E.U./dL Ur Leukocyte Esterase Negative (NEGATIVE) Urine RBC 30-40 H /HPF Urine WBC 0-5 /HPF Ur Epithelial Cells Not seen /LPF Urine Bacteria Rare (NONE TO FEW) /HPF Urine Mucus Few H (NEGATIVE) /LPF Med Orders - Current: Current Medications Hydromorphone HCl (Hydromorphone 0.5 Mg/0.5 Ml Syringe) 0.5 mg IVPUSH Q4H PRN PRN Reason: Pain (severe 7-10) Sodium Chloride (Normal Saline) 1,000 mls @ 125 mls/hr IV ASDIRECTED [facility] Last Admin: 11/02/20 03:56 Dose: 125 mls/hr Documented by: Ketorolac Tromethamine (Ketorolac 15 Mg/Ml Sdv) 15 mg IVPUSH Q6H PRN PRN Reason: Pain Stop: 11/06/20 11:22 Last Admin: 11/02/20 00:50 Dose: 15 mg Documented by: Losartan Potassium (Losartan 50 Mg Tab) 50 mg PO BEDTIME [facility] Last Admin: 11/01/20 19:55 Dose: 50 mg Documented by: Ondansetron HCl (Ondansetron 4 Mg/2 Ml Sdv) 4 mg IVPUSH Q6H PRN PRN Reason: Nausea/Vomiting Sodium Chloride (Sodium Chloride 0.9% 10 Ml Syringe) 10 ml FLUSH ASDIRECTED PRN PRN Reason: Keep Vein Open Last Admin: 11/01/20 11:38 Dose: 10 ml Documented by: Tamsulosin HCl (Tamsulosin 0.4 Mg Cap.Er) 0.4 mg PO BIDPC [facility] Last Admin: 11/02/20 07:43 Dose: 0.4 mg Documented by: Discontinued Medications Sodium Chloride (Normal Saline) 1,000 mls @ 999 mls/hr IV .BOLUS ONE Stop: 11/01/20 09:49 Last Admin: 11/01/20 09:07 Dose: 999 mls/hr Documented by: Ketorolac Tromethamine (Ketorolac 30 Mg/Ml Sdv) 30 mg IVPUSH ONETIME ONE Stop: 11/01/20 08:53 Last Admin: 11/01/20 09:07 Dose: 30 mg Documented by: Losartan Potassium (Losartan 50 Mg Tab) 50 mg PO DAILY [facility] Last Admin: 11/01/20 16:34 Dose: Not Given Documented by: Tamsulosin HCl (Tamsulosin 0.4 Mg Cap.Er) 0.4 mg PO ONETIME ONE Stop: 11/01/20 09:43 Last Admin: 11/01/20 09:47 Dose: 0.4 mg Documented by: - Exam General: Reports: Alert, Oriented, Cooperative, No Acute Distress HEENT: Reports: Pupils Equal, Pupils Reactive, EOMI, Mucous Membr. Moist/[place] Neck: Reports: Supple Lungs: Reports: Clear to Auscultation, Normal Respiratory Effort Cardiovascular: Reports: Regular Rate, Regular Rhythm GI/Abdominal Exam: Normal Bowel Sounds, Soft, Non-Tender (Male) Exam: Deferred Rectal (Males) Exam: Deferred Back Exam: Reports: Normal Inspection. Denies: CVA Tenderness (L), CVA Tenderness (R), Muscle Spasm, Paraspinal Tenderness, Vertebral Tenderness Extremities: Normal Range of Motion, Non-Tender, Normal Capillary Refill Skin: Reports: Warm, Dry Neurological: Reports: No New Focal Deficit Psy/Mental Status: Reports: Alert, Normal Affect, Normal Mood
== END 2020-11-02 13:45 | disposition home or self-care (01) ==
LOC: LL.ED 08:43 → UNDOADMOB 10:00 → LL.MS 10:00
PROVIDERS: ADMIT Emergency Medicine; ATTEND Emergency Medicine
DX: N20.0 Calculus of kidney (principal); I10 Essential (primary) hypertension; K76.0 Fatty (change of) liver, not elsewhere classified; E66.9 Obesity, unspecified; K21.9 Gastro-esophageal reflux disease without esophagitis; Z79.899 Other long term (current) drug therapy; Z68.42 Body mass index [BMI] 45.0-49.9, adult
CPT/HCPCS: 36415; 74018; 80048; 80053; 81001; 83036; 83735; 85025; 96374; 96376; 99217; 99220; 99285-25; A9270-GY; G0378; J1885; J7030